=== PATIENT | female | born 1960 | race Caucasian/White ===

== ENCOUNTER 2023-07-18 05:57 | Day surgery (SDC) | payer BC ==
[2023-07-17 11:50] VITALS: BMI 23.2
[2023-07-18] MEDS ORDERED: Lidocaine 1% PF 5 ML VIAL ONE (07:20)
[2023-07-18] MEDS ORDERED: PROPOFOL 20 ML ONE ×6 (07:20→08:48)
== END 2023-07-18 09:30 | disposition home or self-care (01) ==
LOC: CSHSDC 05:57
PROVIDERS: ATTEND Surgery
PROC: 0DBN8ZZ Excision of Sigmoid Colon, Via Natural or Artificial Opening Endoscopic (ICD-10-PCS; principal; 2023-07-18)
DX: Z12.11 Encounter for screening for malignant neoplasm of colon (principal); K63.5 Polyp of colon; I10 Essential (primary) hypertension; Z88.5 Allergy status to narcotic agent; Z88.8 Allergy status to other drugs, medicaments and biological substances
CPT/HCPCS: 88305; J2704